=== PATIENT | male | born 1955 | race Hispanic/Latino ===

== ENCOUNTER 2017-03-26 06:27 | Day surgery (SDC) | payer BC ==
[~2017-03-26] VITALS: Ht 172.7 cm; Wt 81.5 kg
[~2017-03-26 06:27] MED LIST: ASPI-555 PO; ATOR20TA65 PO; FENO145T37 PO
[2017-03-26 06:42] VITALS: BP 119/59
[2017-03-26] MEDS ORDERED: SODIUM CHLORIDE 0.9% 1000ML 1,000 ML IV ONE (07:03)
[2017-03-26] MEDS ORDERED: PROPOFOL 10 MG/ML 20ML VIAL IV ONE (07:14)
== END 2017-03-26 08:05 | disposition home or self-care (01) ==
LOC: DAH 06:27 → ENDO 06:27
PROVIDERS: ATTEND Internal Medicine Gastroenterology
DX: Z09 Encounter for follow-up examination after completed treatment for conditions other than malignant neoplasm (principal); E78.5 Hyperlipidemia, unspecified; E66.9 Obesity, unspecified; Z68.27 Body mass index [BMI] 27.0-27.9, adult; Z98.890 Other specified postprocedural states; Z79.82 Long term (current) use of aspirin; Z79.899 Other long term (current) drug therapy; Z86.010 Personal history of colon polyps
CPT/HCPCS: 45378; A4606; J2704; J7030